=== PATIENT | female | born 1940 | race Caucasian/White ===

== ENCOUNTER 2016-11-21 16:22 | Inpatient (IN) | payer OTHER ==
[~2016-11-21] VITALS: Ht 154.9 cm; Wt 86.7 kg
[2016-11-21 16:25] VITALS: BP 113/69; PULSE 87; RESP 19; TEMP 97.9; O2SAT 99
--- NOTE | 2016-11-21 16:35 | NUR ---
Patient triaged and placed in waiting room. VSS and patient appears in no acute distress at this time. Accompanied by SPOUSE, awaiting available bed, and MD notified of need for MSE.
[2016-11-21 17:23] LABS: ANION GAP 9 (5-15); CALCIUM 9.6 mg/dL (8.4-11.0); CHLORIDE 107 mmol/L (98-107); CREATININE 1.34 mg/dL (0.55-1.30); GLUCOSE 103 mg/dL (70-99); SODIUM SERUM 139 mmol/L (136-145); UREA NITROGEN, BLOOD 30 mg/dL (8-21)
[2016-11-21 17:24] LABS: PROTHROMBIN TIME 11.1 SECS (9.5-12.5)
[2016-11-21 17:28] LABS: ALANINE AMINOTRANSFERASE 21 U/L (12-78); ALBUMIN 3.8 g/dL (3.4-4.8); ASPARTATE AMINOTRANSFERASE 18 U/L (10-37); TOTAL BILIRUBIN 0.3 mg/dL (0.0-1.0); TOTAL PROTEIN, SERUM 6.9 g/dL (6.4-8.3)
[2016-11-21 17:30] LABS: BASOPHILS # (AUTO) 0.1 K/uL (0.0-0.2); EOSINOPHILS # (AUTO) 0.2 K/uL (0.0-0.4); EOSINOPHILS % (AUTO) 3.6 % (0.0-4.0); LYMPHOCYTES # (AUTO) 1.8 K/uL (1.0-5.5); LYMPHOCYTES % (AUTO) 31.6 % (20.5-51.5); MEAN CORPUSCULAR HEMOGLOBIN 24 pg (27-31); MEAN CORPUSCULAR HGB CONC 31 % (32-36); MEAN CORPUSCULAR VOLUME 77 fL (79.0-98.0); MONOCYTES # (AUTO) 0.5 K/uL (0.0-1.0); NEUTROPHILS # (AUTO) 3.1 K/uL (1.8-7.7); NEUTROPHILS % (AUTO) 55.8 % (40.0-70.0); PLATELET COUNT (AUTO) 187 K/uL (130-430); RED BLOOD CELL COUNT(AUTO) 2.54 MIL/uL (4.2-6.2); RED CELL DISTRIBUTION WIDTH 16.6 % (9.0-15.0); WHITE BLOOD COUNT (AUTO) 5.7 K/uL (4.8-10.8)
[2016-11-21 17:40] LABS: HEMOGLOBIN 6.1 g/dL (12.0-16.0)
[2016-11-21 17:41] LABS: HEMATOCRIT 19.6 % (36-48)
[2016-11-21] MEDS ORDERED: NS 500 ML IV SCH (18:15)
--- NOTE | 2016-11-21 18:15 | NUR ---
RE-TRIAGED, NO CHANGES, VSS, AWAITING ROOM
--- NOTE | 2016-11-21 18:15 | NUR ---
DR HERNANDEZ EVALUATING PT IN TRIAGE ROOM
--- NOTE | 2016-11-21 18:59 | NUR ---
Patient is at rest in bed. In no distress. States that she is here because she was told to come in by Dr. Walton. Appear mildly pale.
[2016-11-21 19:06] LABS: PROTHROMBIN TIME 10.6 SECS (9.5-12.5)
--- NOTE | 2016-11-21 19:25 | NUR ---
Patient will be admitted to care of DR. KING. Admitted to [facility] unit. Will go to room 110 A. Belongings list completed. Summary report printed. Report given to BRENDA CARBALLO.
[2016-11-21] MEDS ORDERED: INSULIN REGULAR, HUMAN 100 UNITS/ML, 10 ML VIAL (novoLIN R) SUBCUT PRN ×2 (19:45→21:30)
--- NOTE | 2016-11-21 19:57 | NUR ---
CONSULTATION PAGED REASON FOR CONSULTATION:GI BLEED WAS CONSULT CALLED?Y PERSON WHO WAS NOTIFIED:ANDREW CONSULTING PHYSICIAN:WAN TALLEY SEASONAL CLERK SPECIALTY:GI SEASONAL CLERK PHONE NUMBER:[phone]
[2016-11-21] MEDS ORDERED: DEXTROSE 50%-WATER 50 ML DISP.SYRIN IVP PRN ×2 (20:00)
[2016-11-21] MEDS ORDERED: GLUCOSE 15 GM GEL (in 37.5 GM TUBE) PO PRN ×2 (20:00)
--- NOTE | 2016-11-21 20:04 | NUR ---
ADMISSION: The patient, CHENCHO JONES, 76 y/o, F admitted by JOSE ESCOBAR MD, was given written information regarding hospital policies, unit procedures and contact persons.
[2016-11-21 20:15] VITALS: BP 132/53; PULSE 75; RESP 20; TEMP 97.9; O2SAT 97
--- NOTE | 2016-11-21 21:30 | NUR ---
initial nursing notes: Patient is awake. Patient has a walker at the bedside. Patient stated that she is admitted to the hospital due to anemia.
--- NOTE | 2016-11-21 23:30 | NUR ---
nursing rounds: First bag of blood has been started. Patient is afebrile. Will monitor patient's condition during transfusion.
[2016-11-21 23:37] VITALS: BP 129/56; PULSE 75; RESP 16; TEMP 97.8; O2SAT 96
[2016-11-21 23:56] VITALS: BP 139/63; PULSE 75; RESP 17; TEMP 97.9; O2SAT 97
[2016-11-22] VITALS (9 sets, daily range): BP systolic 132–154; BP diastolic 58–75; PULSE 68–78; RESP 14–19; TEMP 96.8–98.7; O2SAT 94–100
[2016-11-22] MEDS ORDERED: D5W 1,000 ML IV PRN (00:21)
[2016-11-22] MEDS ORDERED: DEXTROSE 50% JECT 50 ML DISP.SYRIN IVP PRN ×2 (00:30)
[2016-11-22] MEDS ORDERED: GLUCOSE 15 GM GEL (in 37.5 GM TUBE) PO PRN ×2 (00:30)
[2016-11-22] MEDS ORDERED: GLU500 PO ×2 (01:20→12:25)
[2016-11-22] MEDS ORDERED: NAPR-690 PO (01:20)
[2016-11-22] MEDS ORDERED: NEU300 PO (01:20)
[2016-11-22] MEDS ORDERED: HYDR-4100 PO (01:20)
[2016-11-22] MEDS ORDERED: ROPI0.5T PO ×2 (01:20→12:25)
--- NOTE | 2016-11-22 01:55 | NUR ---
nursing rounds: First unit of blood has been completed. Patient is awake. Patient denies of having pain. Patient has no fever.
--- NOTE | 2016-11-22 02:20 | NUR ---
nursing rounds: Second unit of blood is being started. Vital signs were taken. Will monitor patient's condition during transfusion.
--- NOTE | 2016-11-22 04:50 | NUR ---
nursing rounds: Second unit of blood has been completed. Patient is awake. Patient denies of having pain. Patient has no fever. Patient's vital signs are stable.
--- NOTE | 2016-11-22 07:20 | NUR ---
initial rounds: pt on bed awake, alert and oriented. stable. i.v. access patent. call light within reach. report given at bedside.
[2016-11-22 07:50] LABS: BASOPHILS % (AUTO) 0.6 % (0.0-2.0); EOSINOPHILS # (AUTO) 0.1 K/uL (0.0-0.4); EOSINOPHILS % (AUTO) 3.4 % (0.0-4.0); HEMATOCRIT 22.8 % (36-48); LYMPHOCYTES # (AUTO) 1.5 K/uL (1.0-5.5); LYMPHOCYTES % (AUTO) 35.5 % (20.5-51.5); MEAN CORPUSCULAR HEMOGLOBIN 25 pg (27-31); MEAN CORPUSCULAR HGB CONC 31 % (32-36); MEAN CORPUSCULAR VOLUME 81 fL (79.0-98.0); MONOCYTES # (AUTO) 0.4 K/uL (0.0-1.0); MONOCYTES % (AUTO) 9.7 % (1.7-9.3); NEUTROPHILS # (AUTO) 2.2 K/uL (1.8-7.7); NEUTROPHILS % (AUTO) 50.8 % (40.0-70.0); PLATELET COUNT (AUTO) 139 K/uL (130-430); RED BLOOD CELL COUNT(AUTO) 2.83 MIL/uL (4.2-6.2); RED CELL DISTRIBUTION WIDTH 16.5 % (9.0-15.0); WHITE BLOOD COUNT (AUTO) 4.2 K/uL (4.8-10.8)
[2016-11-22 08:06] LABS: ALANINE AMINOTRANSFERASE 18 U/L (12-78); ALBUMIN 3.2 g/dL (3.4-4.8); ANION GAP 7 (5-15); ASPARTATE AMINOTRANSFERASE 16 U/L (10-37); CALCIUM 9.1 mg/dL (8.4-11.0); CHLORIDE 110 mmol/L (98-107); CREATININE 1.07 mg/dL (0.55-1.30); GLUCOSE 84 mg/dL (70-99); POTASSIUM 4.6 mmol/L (3.5-5.1); SODIUM SERUM 141 mmol/L (136-145); TOTAL BILIRUBIN 0.2 mg/dL (0.0-1.0); UREA NITROGEN, BLOOD 25 mg/dL (8-21)
[2016-11-22 08:22] LABS: PROTHROMBIN TIME 11.1 SECS (9.5-12.5)
--- NOTE | 2016-11-22 08:25 | NUR ---
closing nursing notes: Patient is awake, alert and oriented X 4. Patient denies of having pain. Patient is in no acute respiratory distress. Saline lock intact, no bleeding and no infiltration noted. No episodes of fall and no injuries throughout the material handler 1st shift. No blood transfusion reaction noted. Provided nursing report to incoming morning shift nurse, KAIT Walker, at patient's bedside.
--- NOTE | 2016-11-22 09:30 | NUR ---
rounds: assisted to toilet. pt ambulatory with walker.
[2016-11-22 09:42] LABS: IRON (SERUM) 15 mcg/dL (37-145); TOTAL IRON BIND. CAPACITY 426 ug/dL (250-450)
[2016-11-22] MEDS ORDERED: ACETAMINOPHEN 325 MG TABLET PO PRN (09:45)
--- NOTE | 2016-11-22 09:46 | NUR ---
GI CONSULT Spoke with Arianna regarding request for consultation with Dr. Graves ([phone]) for reason: anemia.
--- NOTE | 2016-11-22 09:55 | NUR ---
pain meds: patient complained of back pain. scale of 6/10. due pain meds given i.v.p.
[2016-11-22] MEDS: MORPHINE 2 MG/ML INJ. SYRINGE IVP PRN ×2 (09:56→13:27)
--- NOTE | 2016-11-22 12:00 | NUR ---
rounds: pt on bed with . no distress noted. came to bring her medications from home. Did the med rec. Paged Dr. Navarrete.
[2016-11-22] MEDS ORDERED: FURO-150 PO (12:25)
[2016-11-22] MEDS ORDERED: ESOM40CA PO (12:25)
[2016-11-22] MEDS ORDERED: SENN-104 PO (12:25)
[2016-11-22] MEDS ORDERED: CEL20 PO (12:25)
[2016-11-22] MEDS ORDERED: LEVO25TA7 PO (12:25)
[2016-11-22] MEDS ORDERED: LISI-209 PO (12:25)
[2016-11-22] MEDS ORDERED: ALLO100T PO (12:25)
--- NOTE | 2016-11-22 13:30 | NUR ---
Blood transfusion: Consent signed per agreeing to administration of blood. Blood has been type and crossmatched. Blood sent from blood bank. Information on unit of blood checked against patient wristband at bedside by two nurses. All information matches. Patient or responsible green party informed of potential complications associated with blood transfusion. Informed of possible transfusion reaction symptoms. Aware of need to notify nurse at once of itching, shortness of breath, flushing, feeling of impending doom, or other symptoms not previously present. Vital signs taken within 5 minutes prior to initiation of transfusion. RN will remain with patient for first 15 minutes of transfusion at which time vital signs will be re-assessed.
--- NOTE | 2016-11-22 14:01 | NUR ---
Blood transfusion on going: Blood transfusion infusing well. No shortness of breath. No itchiness. V/S taken. Continue to monitor.
--- NOTE | 2016-11-22 16:59 | NUR ---
Blood sugar: accu check done. no insulin needed per sliding scale.
--- NOTE | 2016-11-22 17:00 | NUR ---
air mattress: patient requested to have air mattress on her bed. Patient is ambulatory. Informed the risk of falling and to call for assistance every time she needs to go to the toilet. Patient verbalized understanding that she needs to call for help.
--- NOTE | 2016-11-22 17:15 | NUR ---
continue blood transfusion: blood transfusion for the 2nd pk rbc continued. no shortness of breath. no allergy reaction.
[2016-11-22] MEDS ORDERED: cloNIDine HCL 0.1 MG TABLET PO PRN (18:00)
[2016-11-22] MEDS ORDERED: GOLYTELY / COLYTE SOLUTION 4 LITERS PO ONE (18:00)
--- NOTE | 2016-11-22 18:11 | NUR ---
rounds: pt sitting on the chair. Increased BP. M.D. informed and with order.
[2016-11-22] MEDS ORDERED: MAGNESIUM CITRATE 300 ML ORAL SOLUTION PO ONE (19:00)
--- NOTE | 2016-11-22 19:30 | NUR ---
Initial PM Note Pt was received sitting up in a chair at the bedside. Blood transfusion is in progress and no transfusion reaction noted. No signs of infiltration noted at the transfusion site. Speech is clear and pt is able to make her needs known. Fall precautions are in place. Call light is with pt. Pt was instructed to call for assistance as needed and pt verbalized understanding. Addendum: 11/22/16 at 1950 by Shanta Baum RN Skin is warm and dry to touch. No signs or symptoms of hypoglycemia or hyperglycemia noted.
--- NOTE | 2016-11-22 19:35 | NUR ---
closing notes: pt sitting on the chair. stable. blood transfusion still going on. report given at bedside. call light within reach.
[2016-11-22] MEDS ORDERED: BISACODYL 5 MG TABLET.DR (DULCOLAX) PO ONE (20:00)
[2016-11-22] MEDS: roPINIRole HCL 0.25 MG ( REQUIP )TABLET PO SCH (20:49)
[2016-11-22] MEDS: GABAPENTIN 300 MG CAPSULE PO SCH (20:50)
--- NOTE | 2016-11-22 20:53 | NUR ---
Blood Sugar Accucheck 106 and no Insulin coverage needed. Skin remains warm and dry to touch.
--- NOTE | 2016-11-22 21:00 | NUR ---
Blood Transfusion Completion One unit PRBC completely transfused and no transfusion reaction noted.
[2016-11-22] MEDS: MORPHINE 4 MG/ML INJ. SYRINGE IVP PRN (22:02)
--- NOTE | 2016-11-22 22:02 | NUR ---
Pain Medication Morphine 4mg was given IV for c/o low back and bilateral leg pain with relief.
--- NOTE | 2016-11-22 22:21 | NUR ---
PAGED PAGED RAMON LORD AT [phone] SPOKE WITH ANDREW.
--- NOTE | 2016-11-22 22:35 | NUR ---
Consents Pt signed consents for EGD and Colonoscopy. Both procedures will be performed tomorrow. Pt was instructed on nothing by mouth after midnight for the procedures and pt verbalized understanding.
--- NOTE | 2016-11-22 23:14 | NUR ---
IVF IVF of D5 1/2Ns started at 50ml/hr as ordered by Dr. Graves. Pt will be nothing by mouth after midnight for EGD and Colonoscopy tomorrow.
[2016-11-22] MEDS ORDERED: D5/0.45 NS 1,000 ML IV SCH (23:15)
--- NOTE | 2016-11-23 01:00 | NUR ---
Rounds Pt is resting comfortably in bed. IVF is infusing well and call light is with pt.
[2016-11-23] MEDS: MORPHINE 4 MG/ML INJ. SYRINGE IVP PRN ×4 (02:15→20:53)
--- NOTE | 2016-11-23 02:15 | NUR ---
Pain Medication Morphine 4mg was given IV for c/o low back and bilateral leg pain with relief.
--- NOTE | 2016-11-23 04:30 | NUR ---
Tap Water Enema Tap water enema given until clear. Pt tolerated the procedure well.
[2016-11-23 04:50] LABS: INR 1.1 (0.8-1.2); PROTHROMBIN TIME 11.4 SECS (9.5-12.5)
[2016-11-23 04:55] VITALS: BP 155/61; PULSE 68; RESP 18; TEMP 97.8; O2SAT 96
[2016-11-23 05:05] LABS: BASOPHILS % (AUTO) 0.7 % (0.0-2.0); EOSINOPHILS # (AUTO) 0.1 K/uL (0.0-0.4); EOSINOPHILS % (AUTO) 3.1 % (0.0-4.0); HEMATOCRIT 32.7 % (36-48); HEMOGLOBIN 10.2 g/dL (12.0-16.0); LYMPHOCYTES # (AUTO) 0.9 K/uL (1.0-5.5); LYMPHOCYTES % (AUTO) 22.5 % (20.5-51.5); MEAN CORPUSCULAR HEMOGLOBIN 25 pg (27-31); MEAN CORPUSCULAR HGB CONC 31 % (32-36); MEAN CORPUSCULAR VOLUME 81 fL (79.0-98.0); MONOCYTES # (AUTO) 0.4 K/uL (0.0-1.0); MONOCYTES % (AUTO) 9.3 % (1.7-9.3); NEUTROPHILS # (AUTO) 2.8 K/uL (1.8-7.7); NEUTROPHILS % (AUTO) 64.4 % (40.0-70.0); PLATELET COUNT (AUTO) 131 K/uL (130-430); RED BLOOD CELL COUNT(AUTO) 4.02 MIL/uL (4.2-6.2); RED CELL DISTRIBUTION WIDTH 16.1 % (9.0-15.0); WHITE BLOOD COUNT (AUTO) 4.2 K/uL (4.8-10.8)
--- NOTE | 2016-11-23 06:36 | NUR ---
Closing Note Pt is awake and resting comfortably in bed. All pt's needs were attended to. No fall or injury noted this shift. Accucheck 108 this AM and no Insulin coverage needed. Skin remains warm and dry to touch. Will endorse to day shift nurse.
[2016-11-23] MEDS ORDERED: FERROUS SULFATE 325 MG TABLET.DR PO ONE (07:30)
[2016-11-23] MEDS: FERROUS SULFATE 325 MG TABLET.DR PO SCH ×4 (07:30→20:52)
--- NOTE | 2016-11-23 08:00 | NUR ---
OPENING NOTE: RECEIVED REPORT FROM NIGHT NURSE. PATIENT IS RESTING COMFORTABLY IN BED. NO S.S OF DISTRESS OR SOB. PATIENT IS ALERT AND ORIENTED. VITAL SIGNS WNL, ASSESSMENT COMPLETE. CALL LIGHT IN REACH, BED IN LOWEST POSITION, AND WILL CONTINUE TO MONITOR.
[2016-11-23 08:36] VITALS: BP 151/65; PULSE 67; RESP 18; TEMP 96.9; O2SAT 96
--- NOTE | 2016-11-23 10:08 | NUR ---
NOTE: PATIENT IS RESTING COMFORTABLY IN BED. NO S/S OF DISTRESS OR SOB. PATIENT IS ALERT AND ORIENTED. CALL LIGHT IN REACH, BED IN LOWEST POSITION, AND WILL CONTINUE TO MONITOR.
--- NOTE | 2016-11-23 10:12 | NUR ---
HCP/PA: Called CATE Herman made her aware of discharge home.
[2016-11-23 11:53] VITALS: BP 145/76; PULSE 65; RESP 19; TEMP 97.1; O2SAT 95
[2016-11-23] MEDS ORDERED: SIMETHICONE 40 MG/0.6 ML ML ONE (12:02)
[2016-11-23] MEDS ORDERED: MIDAZOLAM HCL 5 MG/5 ML VIAL ONE (12:03)
[2016-11-23] MEDS: MIDAZOLAM HCL 5 MG/5 ML VIAL ONE ×5 (13:47→13:59)
[2016-11-23] MEDS: MEPERIDINE HCL/PF 100 MG/ML AMP ONE ×5 (13:47→14:07)
--- NOTE | 2016-11-23 14:00 | NUR ---
NOTE: PATIENT IS IN GI.
[2016-11-23 15:43] VITALS: BP 155/67; PULSE 69; RESP 19; TEMP 98; O2SAT 96
--- NOTE | 2016-11-23 16:15 | NUR ---
NOTE: PATIENT IS RESTING COMFORTABLY IN BED. NO S/S OF DISTRESS OR SOB. PATIENT IS ALERT AND ORIENTED, ABLE TO EXPRESS NEEDS, AND ASK FOR ASSISTANCE. CALL LIGHT IN REACH, BED IN LOWEST POSITION, AND WILL CONTINUE TO MONITOR.
[2016-11-23] MEDS ORDERED: BISACODYL 5 MG TABLET.DR (DULCOLAX) PO ONE (17:00)
--- NOTE | 2016-11-23 18:13 | NUR ---
CLOSING NOTE: PATIENT IS RESTING COMFORTABLY IN BED. NO S/S OF DISTRESS OR SOB. PATIENT IS ALERT AND ORIENTED, ABLE TO EXPRESS NEEDS, AND ASK FOR ASSISTANCE. CALL LIGHT IN REACH, BED IN LOWEST POSITION, AND WILL GIVE REPORT TO NIGHT NURSE.
--- NOTE | 2016-11-23 20:16 | NUR ---
OPENING NOTE Pt. and report received from day shift nurse. Pt. is awake and OOB with steady gait, denies any dizziness or discomfort; with no s/s of acute distress. Plan of care and safety measures explained. Educated pt. on how to use call light for needs. Pt. verbalized understanding. Safety measures in place. Pt. refusing bed alarm at this time because she "wants to walk because I'm bored to pieces." Encouraged pt. to use call light for assistance. Will continue to monitor.
[2016-11-23] MEDS: GABAPENTIN 300 MG CAPSULE PO SCH (20:52)
[2016-11-23] MEDS: roPINIRole HCL 0.25 MG ( REQUIP )TABLET PO SCH (20:52)
--- NOTE | 2016-11-23 20:53 | NUR ---
PAIN Late entry due to pt. care. Pt. c/o severe pain to legs and back. Pt. medicated with Morphine IVP as ordered PRN for severe pain. See EMAR. Educated pt. regarding pain medication and s/e and to use call light for any needs; especially when getting OOB. Pt. verbalized understanding and is able to teach back. Safety measures in place. Educated pt. on bed alarm and she agreed to turn it on. Will continue to monitor.
--- NOTE | 2016-11-23 22:25 | NUR ---
ACCUCHECK/HYPOGLYCEMIA Blood sugar 63; 15 units of glucose gel administered. Pt. is asymptomatic with no s/s of acute distress. Will recheck blood sugar in 15 minutes.
--- NOTE | 2016-11-23 22:51 | NUR ---
BLOOD SUGAR RECHECK Blood sugar: 87. No s/s of acute distress. Will page MD to report and to request orders for pt.'s NPO status at midnight.
--- NOTE | 2016-11-23 22:56 | NUR ---
PAGED: PAGED DR. ESCOBAR @ [phone] I SPOKE WITH AARON ZAMORA
--- NOTE | 2016-11-23 23:15 | NUR ---
RE-PAGING DR. BARBA DUE TO CALL DISCONNECTED Call was disconnected; repaging Dr. Barba to report blood sugar and request orders. Will wait for MD to call back.
--- NOTE | 2016-11-23 23:55 | NUR ---
SPOKE TO DR. BARBA Spoke to Dr. Barba to report blood glucose level of 63; 87 when rechecked after glucose gel administration and that pt. will be NPO at midnight for XR Barium Enema in the AM but does not have any IV fluids ordered at this time. Dr. Barba ordered D5 1/2 NS to infuse at 80 mls/hour. Will carry out.
--- NOTE | 2016-11-24 | NUR ---
BATHROOM Pt. requested for bed alarm to be turned off so she can walk to the bathroom. States she does not want to use BSC at this time and would rather walk. Pt.'s gait is steady with use of walker. Denies any dizziness or discomfort. Encouraged pt. to use call light for any needs. Will continue to monitor.
[2016-11-24 00:01] VITALS: BP 140/59; PULSE 62; RESP 18; TEMP 97.2; O2SAT 96
[2016-11-24] MEDS: D5/0.45 NS 1,000 ML IV SCH ×2 (00:18→12:30)
--- NOTE | 2016-11-24 01:30 | NUR ---
IV FLUIDS IV fluids infusing as ordered. Pt. denies any pain or discomfort at this time.
--- NOTE | 2016-11-24 02:28 | NUR ---
ROUNDS Pt. is resting quietly in bed with eyes closed. Respirations are even and unlabored with visible chest rise and fall. No s/s of acute distress. IV fluids infusing as ordered. Safety measures in place. Bed alarm on. Will continue to monitor.
[2016-11-24 04:07] VITALS: BP 153/68; PULSE 64; RESP 18; TEMP 98; O2SAT 95
--- NOTE | 2016-11-24 04:14 | NUR ---
BATHROOM/ROUNDS/TAP WATER ENEMA Assisted pt. to bathroom to void; pt. tolerated well with use of walker. No c/o dizziness or weakness. Tap water enema done. Clear output noted. Assisted pt. back to bed. Will continue to monitor.
[2016-11-24 05:06] LABS: HAPTOGLOBIN 83 mg/dL (34-200)
[2016-11-24] MEDS: MORPHINE 4 MG/ML INJ. SYRINGE IVP PRN ×2 (05:52→10:44)
--- NOTE | 2016-11-24 07:14 | NUR ---
CLOSING NOTES All needs met throughout shift. IV fluids infusing as ordered. No significant changes. Safety measures in place. Encouraged pt. to use call light for any needs. Will endorse care to oncoming day shift nurse.
--- NOTE | 2016-11-24 08:00 | NUR ---
OPENING NOTE: RECEIVED REPORT FROM NIGHT NURSE. PATIENT IS RESTING COMFORTABLY IN BED. NO S/S OF DISTRESS OR SOB. PATIENT IS ALERT AND ORIENTED, ABLE TO EXPRESS NEEDS, AND ASK FOR ASSISTANCE. VITAL SIGNS WNL, ASSESSMENT COMPLETE. CALL LIGHT IN REACH, BED IN LOWEST POSITION, AND WILL CONTINUE TO MONITOR.
[2016-11-24 08:33] VITALS: BP 173/79; PULSE 62; RESP 18; TEMP 98.2; O2SAT 96
--- NOTE | 2016-11-24 10:30 | NUR ---
NOTE: PATIENT BACK FROM RADIOLOGY. PATIENT IN STABLE CONDITION, NO S/S OF DISTRESS OR SOB. CALL LIGHT IN REACH, BED IN LOWEST POSITION, AND WILL CONTINUE TO MONITOR.
[2016-11-24] MEDS: FERROUS SULFATE 325 MG TABLET.DR PO SCH (10:33)
[2016-11-24 12:00] VITALS: BP 153/74; PULSE 65; RESP 18; TEMP 96.9; O2SAT 96
--- NOTE | 2016-11-24 12:00 | NUR ---
NOTE: PATIENT IS RESTING COMFORTABLY IN BED. NO S/S OF DISTRESS OR SOB. PATIENT IS ALERT AND ORIENTED, ABLE TO EXPRESS NEEDS, AND ASK FOR ASSISTANCE. SPOKE WITH DR. FORD. AND GOT DIET ORDER FOR REGULAR AND OKAY TO DISCHARGE.
[2016-11-24 12:55] VITALS: BP 155/69; PULSE 62; RESP 18; TEMP 98.2; O2SAT 96
[2016-11-24] MEDS ORDERED: FERR-57 PO (13:44)
--- NOTE | 2016-11-24 14:00 | NUR ---
D/C Patient Patient given medication reconciliation form and D/C instructions. Exit Care provided. Patient verbalized understanding. MD discussed with patient the results and treatment provided. Ambulatory with steady gait for discharge to home. Patient in stable condition, ID band removed. IV catheter removed, intact and dressing applied, no active bleeding. Rx of Ferrous Sulfate given. Patient educated on pain management. All belongings sent with patient.
--- NOTE | 2016-11-29 10:21 | NUR ---
Discharge Follow Up Phone Call Radio Dispatcher phoned patient, , on 11/25/16, 11/28/16 and 11/29/16 and left voicemail messages with offer of assistance and Social Service contact information. No further calls will be attempted.
== END 2016-11-24 14:00 | disposition home or self-care (01) | DRG 812 ==
LOC: SED 16:22 → SMU 19:25 → OBSVTOIN 11-22 08:52
PROC: 30233N1 Transfusion of Nonautologous Red Blood Cells into Peripheral Vein, Percutaneous Approach (ICD-10-PCS; 2016-11-21)
PROC: BD14YZZ Fluoroscopy of Colon using Other Contrast (ICD-10-PCS; 2016-11-21)
PROC: 0DB68ZX Excision of Stomach, Via Natural or Artificial Opening Endoscopic, Diagnostic (ICD-10-PCS; 2016-11-23)
PROC: 0DJD8ZZ Inspection of Lower Intestinal Tract, Via Natural or Artificial Opening Endoscopic (ICD-10-PCS; principal; 2016-11-23 12:30)
PROC: 0DBA8ZX Excision of Jejunum, Via Natural or Artificial Opening Endoscopic, Diagnostic (ICD-10-PCS; 2016-11-23 12:30)
DX: D50.0 Iron deficiency anemia secondary to blood loss (chronic) (principal); K29.70 Gastritis, unspecified, without bleeding; E11.9 Type 2 diabetes mellitus without complications; B18.2 Chronic viral hepatitis C; E66.9 Obesity, unspecified; K43.9 Ventral hernia without obstruction or gangrene; K57.30 Diverticulosis of large intestine without perforation or abscess without bleeding; K64.9 Unspecified hemorrhoids; G89.29 Other chronic pain; M54.9 Dorsalgia, unspecified; Z98.84 Bariatric surgery status; Z90.49 Acquired absence of other specified parts of digestive tract; Z90.710 Acquired absence of both cervix and uterus; Z68.36 Body mass index [BMI] 36.0-36.9, adult
CPT/HCPCS: 36415; 43239; 45378; 71010; 74270-TC; 76700-TC; 80053; 82272; 82607; 82962; 83010; 83540-TC; 83550-TC; 83615-TC; 85025; 85610-TC; 85730-TC; 86886; 86900; 86901; 86920; 87081; 88305; 88312; 88313; 93005; 99285; G0378; J1815; J2175; J2250; J2270; J7030; J7050; P9021

== ENCOUNTER 2017-02-17 15:30 | Inpatient (IN) | payer OTHER ==
[~2017-02-17] VITALS: Ht 152.4 cm; Wt 83.9 kg
[~2017-02-17 15:30] MED LIST: ALLO100T PO; CEL20 PO; ESOM40CA PO; FERR-57 PO; FURO-150 PO; GLU500 PO; HYDR-4100 PO; LEVO25TA7 PO; LISI-209 PO; NAPR-690 PO; NEU300 PO; ROPI0.5T PO; SENN-104 PO
[2017-02-17 15:50] VITALS: BP 129/50; PULSE 93; RESP 20; TEMP 98.4; O2SAT 95
--- NOTE | 2017-02-17 15:50 | NUR ---
DIANE muro for c/o weakness. PCP Dr. Walton called her this morning and told her she needed ablood transfuion.She was unable to find an opening at [facility]. She called her PCP back and he said to go to the Ed, thus she came here. She stated her hgb was 6.9 per her PCP. Report given to myself
--- NOTE | 2017-02-17 15:51 | NUR ---
Skin cool and pale. Denies dizzyness. Monitor SR rate 89. BP stable.
--- NOTE | 2017-02-17 16:05 | NUR ---
ekg done and iv 20g started left forearm. blood ordered per dr hebert.
[2017-02-17 16:33] LABS: ANION GAP 9 (5-15); CALCIUM 9.4 mg/dL (8.4-11.0); CHLORIDE 105 mmol/L (98-107); CREATININE 1.35 mg/dL (0.55-1.30); GLUCOSE 105 mg/dL (70-99); POTASSIUM 4.8 mmol/L (3.5-5.1); PROTHROMBIN TIME 10.7 SECS (9.5-12.5); SODIUM SERUM 139 mmol/L (136-145); UREA NITROGEN, BLOOD 33 mg/dL (8-21)
[2017-02-17 16:38] LABS: ALANINE AMINOTRANSFERASE 20 U/L (12-78); ALBUMIN 3.5 g/dL (3.4-4.8); ASPARTATE AMINOTRANSFERASE 23 U/L (10-37); TOTAL BILIRUBIN 0.3 mg/dL (0.0-1.0); TOTAL PROTEIN, SERUM 6.1 g/dL (6.4-8.3)
[2017-02-17 16:45] LABS: BASOPHILS % (AUTO) 0.8 % (0.0-2.0); EOSINOPHILS # (AUTO) 0.2 K/uL (0.0-0.4); LYMPHOCYTES # (AUTO) 1.4 K/uL (1.0-5.5); LYMPHOCYTES % (AUTO) 26.4 % (20.5-51.5); MEAN CORPUSCULAR HEMOGLOBIN 29 pg (27-31); MEAN CORPUSCULAR HGB CONC 32 % (32-36); MEAN CORPUSCULAR VOLUME 90 fL (79.0-98.0); MONOCYTES # (AUTO) 0.4 K/uL (0.0-1.0); MONOCYTES % (AUTO) 7.9 % (1.7-9.3); NEUTROPHILS # (AUTO) 3.2 K/uL (1.8-7.7); NEUTROPHILS % (AUTO) 61.9 % (40.0-70.0); PLATELET COUNT (AUTO) 202 K/uL (130-430); RED BLOOD CELL COUNT(AUTO) 2.08 MIL/uL (4.2-6.2); RED CELL DISTRIBUTION WIDTH 16.1 % (9.0-15.0); WHITE BLOOD COUNT (AUTO) 5.2 K/uL (4.8-10.8)
[2017-02-17 16:51] LABS: HEMATOCRIT 18.7 % (36-48)
--- NOTE | 2017-02-17 17:30 | NUR ---
called lab to inquire about blood. pt has antibodies in blood and it will take awhile to get the 2 ipt updated. call out to dr birch for admission orders. at bedside.
--- NOTE | 2017-02-17 18:35 | NUR ---
Patient will be admitted to care of Dr kaur. Admitted to unit. Will go to room . Belongings list completed. Summary report printed. Report will be given at bedside to eder rhoades.
--- NOTE | 2017-02-17 18:43 | NUR ---
ADMIT NOTE Received pt from ER to the floor with a diagnosis of Severe Anemia. Admission process initiated. Plan of care for the day discussed-teach back done. Patient oriented to pain management, safety and call light-teach back done.
[2017-02-17 18:54] VITALS: BP 138/62; PULSE 79; RESP 20; TEMP 96.8; O2SAT 95
--- NOTE | 2017-02-17 20:00 | NUR ---
ROUNDS PATIENT IN BED, NOT IN DISTRESS, VITALS STABLE, DENIES ANY PAIN AND DISCOMFORT AT THIS TIME. ASSESSMENT DONE AND DOCUMENTED. NEEDS ATTENDED TO. SAFETY AND FALL PRECAUTION MEASURES IN PLACED. BED IN LOW AND LOCKED POSITION. BED ALARM ON. SIDERAILS UP X3. CALL LIGHT PLACED WITH PATIENT.
[2017-02-17 23:18] VITALS: BP 116/64; PULSE 93; RESP 16; TEMP 97.2; O2SAT 97
--- NOTE | 2017-02-18 00:15 | NUR ---
PATIENT RESTING: Patient resting quietly. No acute distress noted. Vital signs within normal range.
[2017-02-18 04:04] VITALS: BP 128/67; PULSE 87; RESP 19; TEMP 97.3; O2SAT 92
--- NOTE | 2017-02-18 04:08 | NUR ---
PATIENT RESTING: Patient resting quietly. No acute distress noted. Vital signs within normal range.
--- NOTE | 2017-02-18 05:15 | NUR ---
BLOOD TRANSFUSION 1ST UNIT PRBC TRANSFUSED ORDERED, VITALS STABLE, DENIES ANY SIGNS AND SYMPTOMS OF TRANSFUSION REACTIONS. WILL CONTINUE TO MONITOR.
--- NOTE | 2017-02-18 06:45 | NUR ---
CLOSING NOTES PATIENT AWAKE, VITALS STABLE, BLOOD TRANS FUSION WITH PRBC STILL INFUSING. ALL NEEDS ATTENDED TO. SAFETY AND FALL PRECAUTION MEASURES MAINTAINED. BED IN LOW AND LOCKED POSITION. CALL LIGHT PLACED WITHIN REACH.
[2017-02-18 08:00] VITALS: BP 134/51; PULSE 79; RESP 18; TEMP 96.4; O2SAT 95
--- NOTE | 2017-02-18 08:00 | NUR ---
Initial Note Patient A/O x4, respirations even and unlabored. IV access patent. Blood transfusion being administered at this time. Use of call light reviewed with patient. Fall and safety precautions in place. Encouraged patient to call for assistance when needed.
--- NOTE | 2017-02-18 08:15 | NUR ---
BT INITIATION: Consent signed per patient agreeing to administration of blood. Blood has been type and crossmatched. Blood sent from blood bank. Information on unit of blood checked against patient wristband at bedside by two nurses. All information matches. Patient is informed of potential complications associated with blood transfusion. Informed of possible transfusion reaction symptoms. Aware of need to notify nurse at once of itching, shortness of breath, flushing, feeling of impending doom, or other symptoms not previously present. Vital signs taken within 5 minutes prior to initiation of transfusion. RN will remain with patient for first 15 minutes of transfusion at which time vital signs will be re-assessed. This is the 2nd unit being administered per MD orders.
[2017-02-18] MEDS ORDERED: HYDROcodone/ACETAMIN 10-325 MG TAB PO SCH (10:15)
[2017-02-18 11:41] VITALS: BP 140/79; PULSE 82; RESP 16; TEMP 97.8; O2SAT 95
[2017-02-18 13:16] LABS: BASOPHILS % (AUTO) 0.7 % (0.0-2.0); EOSINOPHILS # (AUTO) 0.2 K/uL (0.0-0.4); EOSINOPHILS % (AUTO) 3.1 % (0.0-4.0); HEMATOCRIT 28.6 % (36-48); HEMOGLOBIN 9.2 g/dL (12.0-16.0); LYMPHOCYTES # (AUTO) 1.5 K/uL (1.0-5.5); LYMPHOCYTES % (AUTO) 21.6 % (20.5-51.5); MEAN CORPUSCULAR HEMOGLOBIN 29 pg (27-31); MEAN CORPUSCULAR HGB CONC 32 % (32-36); MEAN CORPUSCULAR VOLUME 90 fL (79.0-98.0); MONOCYTES # (AUTO) 0.5 K/uL (0.0-1.0); MONOCYTES % (AUTO) 7.4 % (1.7-9.3); NEUTROPHILS # (AUTO) 4.6 K/uL (1.8-7.7); NEUTROPHILS % (AUTO) 67.2 % (40.0-70.0); PLATELET COUNT (AUTO) 247 K/uL (130-430); RED BLOOD CELL COUNT(AUTO) 3.19 MIL/uL (4.2-6.2); WHITE BLOOD COUNT (AUTO) 6.9 K/uL (4.8-10.8)
--- NOTE | 2017-02-18 13:42 | NUR ---
Notes Call sent out to Dr. Barba to inform of post-transfusion lab values.
--- NOTE | 2017-02-18 14:05 | NUR ---
Notes Notified Dr. Barba of patients post-transfusion lab values. Dr. Barba stated it is ok to discharge patient.
[2017-02-18 14:59] VITALS: BP 140/79; PULSE 80; RESP 18; TEMP 97.6; O2SAT 95
--- NOTE | 2017-02-18 15:40 | NUR ---
D/C Patient Patient given medication reconciliation form and D/C instructions. Exit Care provided. Patient verbalized understanding. MD discussed with patient the results and treatment provided. Ambulatory with steady gait for discharge to home. Patient in stable condition, ID band removed. IV catheter removed, intact and dressing applied, no active bleeding. Patient educated on pain management and follow up care. All belongings sent with patient.
[2017-02-18] MEDS ORDERED: metFORMIN HCL 500 MG TABLET PO SCH ×2 (18:00→21:00)
[2017-02-18] MEDS ORDERED: roPINIRole HCL 0.25 MG ( REQUIP )TABLET PO SCH (21:00)
[2017-02-18] MEDS ORDERED: LISINOPRIL 5 MG TABLET PO SCH (21:00)
[2017-02-18] MEDS ORDERED: GABAPENTIN 300 MG CAPSULE PO SCH (21:00)
[2017-02-19] MEDS ORDERED: ALLOPURINOL 100 MG TABLET (ZYLOPRIM) PO SCH (09:00)
[2017-02-19] MEDS ORDERED: CITALOPRAM HYDROBROMIDE 20 MG TABLET PO SCH (09:00)
[2017-02-19] MEDS ORDERED: FUROSEMIDE 20 MG TABLET PO SCH (09:00)
[2017-02-19] MEDS ORDERED: LEVOTHYROXINE SODIUM 0.025 MG TABLET PO SCH (09:00)
[2017-02-20 10:11] LABS: HEMOGLOBIN 5.9 g/dL (12.0-16.0)
--- NOTE | 2017-02-22 10:42 | NUR ---
Discharge Follow Up Phone Calls: Institution Librarian called and left voice mails for pt ([phone]) on 02/20/17 and 02/21/17. FOUNTAIN HELPER called pt today and pt's , Evans, answered the phone. Pt's states that pt is doing well overall; there are no questions regarding discharge or medication instructions; pt has a follow up appointment scheduled with PCP, Dr. Walton; pt checks her blood sugar as directed by PCP. Pt's did not express any other needs or concerns and denied the need for additional follow up at this time. No further follow up phone calls required at this time.
== END 2017-02-18 15:40 | disposition home or self-care (01) | DRG 812 ==
LOC: SED 15:30 → INTOOBSV 17:47 → OBSVTOIN 17:47 → STU 17:47 → UNDOADMOB 17:47 → STU 18:21 → OBSVTOIN 02-18 08:36 → STU 02-18 08:36 → SMU 02-18 08:48 → UNDODISIN 02-18 15:40
PROC: 30233N1 Transfusion of Nonautologous Red Blood Cells into Peripheral Vein, Percutaneous Approach (ICD-10-PCS; principal; 2017-02-18)
DX: D64.9 Anemia, unspecified (principal); E11.9 Type 2 diabetes mellitus without complications; G89.29 Other chronic pain; M54.9 Dorsalgia, unspecified; Z86.19 Personal history of other infectious and parasitic diseases; Z98.84 Bariatric surgery status; Z79.899 Other long term (current) drug therapy
CPT/HCPCS: 36415; 71010; 80053; 82962; 83880; 84484; 85025; 85610-TC; 85730-TC; 86870; 86886; 86900; 86901; 86905; 86920; 93005; 99285; J7040; P9021

== ENCOUNTER 2022-05-13 12:32 | Emergency (ER) | payer OTHER ==
[~2022-05-13] VITALS: Ht 147.3 cm; Wt 72.6 kg
[~2022-05-13 12:32] MED LIST changes: -FERR-57 PO; +HYDR-3927 PO; -HYDR-4100 PO; -NAPR-690 PO; -SENN-104 PO; +SENN-295 PO
[2022-05-13 12:49] VITALS: BP_SYST 119
--- NOTE | 2022-05-13 13:27 | NUR ---
Pt in room #4 coming from urgent care due to c/o falling at home. Pt fell at home trying to get out of bed and landed on right side of body. Did not hit head and no loc. Pt has laceration on right knee and on right elbow. Wound cleansed with NS and betadine. Pt is A&Ox4. No chest pain and no sob. Denies n/v. No blurred vision. States she uses a walker at home. at bedside. NKA. VSS. Has hx of DM, HTN, Hyouthyroidism, Depression, Insomina, Vebnous stasis, and Hyperlipidemia.
--- NOTE | 2022-05-13 13:38 | NUR ---
ER at bedside examining patient.
[2022-05-13] MEDS ORDERED: LIDOCAINE 1% 10 MG/ML, 20 ML MDV INJ ONE (13:45)
[2022-05-13] MEDS ORDERED: HYDROcodone/ACETAMIN 7.5-325 MG TAB PO ONE (13:45)
[2022-05-13] MEDS ORDERED: DIPH-TET-PERTUS Vaccine 0.5 ML VIAL (ADACEL) I.M. ONE (13:45)
[2022-05-13] MEDS ORDERED: LIDOCAINE 1%, 20 ML MDV 40 ML ONE (14:36)
[2022-05-13] MEDS ORDERED: BACITRACIN 1 GM OINT TP ONE (14:50)
[2022-05-13 15:03] VITALS: BP_SYST 148
--- NOTE | 2022-05-13 15:03 | NUR ---
Dresses wound w. Bacitracin, non-adherent gauze, bulky dressing, and tubular gauze.
--- NOTE | 2022-05-13 15:04 | NUR ---
Patient given written and verbal discharge instructions and verbalizes understanding. ER MD discussed with patient the results and treatment provided. Patient in stable condition. ID arm band removed. Patient educated on pain management and to follow up with PMD. Pain Scale 0/10. Opportunity for questions provided and answered. Medication side effect fact sheet provided.
== END 2022-05-13 15:03 | disposition home or self-care (01) ==
LOC: SED 12:32
DX: S81.011A Laceration without foreign body, right knee, initial encounter (principal); E11.9 Type 2 diabetes mellitus without complications; I10 Essential (primary) hypertension; Z79.899 Other long term (current) drug therapy; W06.XXXA Fall from bed, initial encounter; Y93.89 Activity, other specified; Y92.89 Other specified places as the place of occurrence of the external cause; Y99.8 Other external cause status
CPT/HCPCS: 99283; 90715; 90471; 12002; J2001

== ENCOUNTER 2022-06-06 14:27 | Emergency (ER) | payer OTHER ==
[~2022-06-06] VITALS: Ht 147.3 cm; Wt 70.3 kg
[2022-06-06 14:38] VITALS: BP_SYST 94
[2022-06-06 15:27] LABS: ACETONE, SERUM NEGATIVE (NEGATIVE)
[2022-06-06 15:28] LABS: BASOPHILS # (AUTO) 0.1 K/uL (0.0-0.2); BASOPHILS % (AUTO) 1.9 % (0.0-2.0); EOSINOPHILS # (AUTO) 0.2 K/uL (0.0-0.4); EOSINOPHILS % (AUTO) 3.1 % (0.0-4.0); HEMATOCRIT 33.1 % (36-48); HEMOGLOBIN 10.9 g/dL (12.0-16.0); LYMPHOCYTES # (AUTO) 1.4 K/uL (1.0-5.5); LYMPHOCYTES % (AUTO) 24.2 % (20.5-51.5); MEAN CORPUSCULAR HEMOGLOBIN 30 pg (27-31); MEAN CORPUSCULAR HGB CONC 33 % (32-36); MEAN CORPUSCULAR VOLUME 92 fL (79.0-98.0); MONOCYTES # (AUTO) 0.3 K/uL (0.0-1.0); MONOCYTES % (AUTO) 5.6 % (1.7-9.3); NEUTROPHILS # (AUTO) 3.8 K/uL (1.8-7.7); NEUTROPHILS % (AUTO) 65.2 % (40.0-70.0); PLATELET COUNT (AUTO) 179 K/uL (130-430); RED BLOOD CELL COUNT(AUTO) 3.61 MIL/uL (4.2-6.2); RED CELL DISTRIBUTION WIDTH 17.3 % (9.0-15.0); WHITE BLOOD COUNT (AUTO) 5.9 K/uL (4.8-10.8)
[2022-06-06 15:31] LABS: ANION GAP 8 (5-15); CALCIUM 9.5 mg/dL (8.4-11.0); CHLORIDE 103 mmol/L (98-107); CREATININE 1.13 mg/dL (0.55-1.30); GLUCOSE 97 mg/dL (70-99); POTASSIUM 4.9 mmol/L (3.5-5.1); SODIUM SERUM 138 mmol/L (136-145); UREA NITROGEN, BLOOD 41 mg/dL (8-21)
[2022-06-06 15:36] LABS: ALANINE AMINOTRANSFERASE 20 U/L (12-78); ALBUMIN 3.6 g/dL (3.4-4.8); ASPARTATE AMINOTRANSFERASE 21 U/L (10-37); TOTAL BILIRUBIN 0.2 mg/dL (0.0-1.0)
[2022-06-06 15:38] LABS: C-REACTIVE PROTEIN QUANT < 0.2 mg/dL (0-0.5)
--- NOTE | 2022-06-06 16:31 | NUR ---
Patient to ER bed 03 to gown for evaluation. Side rails up.
[2022-06-06] MEDS ORDERED: CLIN-22 PO (16:39)
--- NOTE | 2022-06-06 16:40 | NUR ---
ER Dr. GOMEZ at bedside examining patient.
--- NOTE | 2022-06-06 16:45 | NUR ---
PT CAME FROM HOME WITH C/O PAIN TO INCISION RT KNEE. PATIENT HAS HX OF DIABETES AND KNEE SURGERY. A&OX4, VSS, IN NO ACUTE DISTRESS. PT DENIES F/V/D. WILL CONTINUE TO MONITOR AND PROVIDE CARE ORDERED.
[2022-06-06] MEDS ORDERED: BACITRACIN 1 GM OINT TP ONE ×2 (17:06→17:15)
[2022-06-06 17:32] VITALS: BP_SYST 158
--- NOTE | 2022-06-06 17:35 | NUR ---
Patient given written and verbal discharge instructions and verbalizes understanding. ER MD discussed with patient the results and treatment provided. Patient in stable condition. ID arm band removed. IV catheter removed intact and dressing applied, no active bleeding. Rx of Clindamycin given. Patient educated on pain management and to follow up with PMD. Pain Scale 3/10. Opportunity for questions provided and answered. Medication side effect fact sheet provided.
== END 2022-06-06 17:33 | disposition home or self-care (01) ==
LOC: SED 14:27
DX: S81.001A Unspecified open wound, right knee, initial encounter (principal); I10 Essential (primary) hypertension; E11.9 Type 2 diabetes mellitus without complications; Z79.899 Other long term (current) drug therapy; X58.XXXA Exposure to other specified factors, initial encounter; Y93.89 Activity, other specified; Y92.89 Other specified places as the place of occurrence of the external cause; Y99.8 Other external cause status
CPT/HCPCS: 36415; 80053; 82009; 83605; 85025; 86140; 99283